=== PATIENT | female | born 1995 | race Caucasian/White ===

== ENCOUNTER 2021-12-03 19:34 | Emergency (ER) | payer MEDICAID ==
[~2021-12-03] VITALS: Ht 147.3 cm; Wt 43.0 kg
[2021-12-03] MEDS ORDERED: KETOROLAC 60MG/2ML VIAL IM STA (20:41)
[2021-12-03] MEDS ORDERED: MAGNESIUM/ALUMINUM HYDROXIDE/SIMETHICONE 30ML UDC PO STA (20:41)
[2021-12-03 21:03] LABS: BASOPHILS % 0.7 % (0.0-2.0); EOSINOPHILS % 1.6 % (0.0-5.0); HEMATOCRIT. 37.6 % (36.0-48.0); HEMOGLOBIN. 12.9 g/dL (12.0-16.0); LYMPHOCYTES % 33.3 % (20.0-50.0); MEAN CORPUSCULAR HEMOGLOBIN 29.5 pg (28.0-32.0); MEAN CORPUSCULAR VOLUME 86.1 fL (81.0-99.0); MEAN PLATELET VOLUME 8.2 fl (7.4-10.4); MONOCYTES % 9.6 % (2.0-8.0); NEUTROPHILS % 54.8 % (40.0-76.0); PLATELET 230 x1000/uL (130-400); RED BLOOD CELL COUNT 4.37 mill/uL (4.2-5.4); RED CELL DISTRIBUTION WIDTH 13.7 % (11.6-14.6)
[2021-12-03 21:09] LABS: CHLORIDE 107 mEq/L (98-107)
[2021-12-03 21:14] VITALS: BP 133/95
[2021-12-03 22:02] LABS: CLARITY URINE CLOUDY (CLEAR); COLOR URINE YELLOW (YELLOW); KETONES URINE NEGATIVE (NEGATIVE); LEUKOCYTE ESTERASE URINE TRACE (NEGATIVE); NITRITE URINE NEGATIVE (NEGATIVE); OCCULT BLOOD URINE TRACE (NEGATIVE); PROTEIN URINE NEGATIVE (NEGATIVE); SPECIFIC GRAVITY URINE 1.013 (1.005-1.030); UROBILINOGEN URINE 0.2 E.U./dL (0.2-1.0)
[2021-12-03] MEDS ORDERED: CEPH500T MT (22:36)
[2021-12-03] MEDS ORDERED: FAMO-135 MT (23:22)
== END 2021-12-04 00:01 | disposition home or self-care (01) ==
LOC: ER 19:34
DX: M25.512 Pain in left shoulder (principal); N39.0 Urinary tract infection, site not specified
CPT/HCPCS: 36415; 73030; 80053; 81003; 81025; 83690; 85025; 96372; 99284; J1885